=== PATIENT | female | born 1990 | race Caucasian/White ===

== ENCOUNTER 2016-11-26 11:25 | Observation (INO) | payer MEDICAID, OTHER ==
[~2016-11-26] VITALS: Ht 172.7 cm; Wt 76.0 kg
[~2016-11-26 11:25] MED LIST: AUGM875T PO; PRENCAP6 PO; SERO100T PO; SERT100 PO; TRAZ50TA4 PO
[2016-11-26 11:27] VITALS: BP 117/72; PULSE 102; RESP 20; TEMP 98.1; O2SAT 100
[2016-11-26] MEDS ORDERED: NEOSTIGMINE 3 MG/3 ML SYR IV ONE (12:00)
[2016-11-26] MEDS ORDERED: PROPOFOL 200 MG/20 ML AMP IV ONE (12:00)
[2016-11-26] MEDS ORDERED: ONDANSETRON HCL 4 MG/2 ML VIAL IV PUSH ONE (12:00)
[2016-11-26] MEDS ORDERED: PHENYLEPH/NS 1000 MCG/10 ML SYR IV ONE (12:00)
[2016-11-26] MEDS ORDERED: LACTATED RINGER'S 1000 ML INJ 1,000 ML IV ONE (12:00)
[2016-11-26] MEDS ORDERED: ePHEDrine/NS 25 MG/5 ML SYR IV ONE (12:00)
[2016-11-26] MEDS ORDERED: SODIUM CHLOR 0.9% 1000 ML INJ 1,000 ML IV SCH (12:53)
[2016-11-26] MEDS ORDERED: KETOROLAC TROMETHAMINE 30 MG/ML (IVP) VIAL IVP ONE (13:00)
[2016-11-26] MEDS ORDERED: PANTOPRAZOLE SODIUM 40 MG VIAL IVP ONE (13:00)
[2016-11-26] MEDS ORDERED: FAMOTIDINE 20 MG/2 ML VIAL IV PUSH ONE (13:00)
[2016-11-26] MEDS ORDERED: ONDANSETRON HCL 4 MG/2 ML VIAL IVP ONE (13:00)
[2016-11-26] MEDS ORDERED: TRAZ50TA12 PO (13:07)
[2016-11-26] MEDS ORDERED: CYMB60CA PO (13:07)
[2016-11-26] MEDS ORDERED: LAMO100 PO (13:07)
[2016-11-26] MEDS ORDERED: LAMO150 PO (13:07)
[2016-11-26 13:17] LABS: AUTOMATED NEUTROPHIL # 5.8 TH/MM3 (1.8-7.7); BASOPHIL # 0.1 TH/MM3 (0-0.2); BASOPHIL % 0.5 % (0.0-2.0); EOSINOPHIL # 0.3 TH/MM3 (0-0.4); EOSINOPHIL % 3.3 % (0.0-4.0); HEMATOCRIT 37.2 % (35.0-46.0); HEMO FLAGS DIFF FINAL; LYMPHOCYTE # 3.3 TH/MM3 (1.0-4.8); MEAN CELL VOLUME 88.1 FL (80.0-100.0); MEAN CORPUSCULAR HEMOGLOBIN 30.6 PG (27.0-34.0); MEAN CORPUSCULAR HGB CONC 34.8 % (32.0-36.0); MONO % 7.3 % (0.0-8.0); NEUT % 56.9 % (16.0-70.0); PLATELET COUNT 262 TH/MM3 (150-450); RED BLOOD COUNT 4.22 MIL/MM3 (4.00-5.30); RED CELL DISTRIBUTION WIDTH 12.5 % (11.6-17.2); WHITE BLOOD COUNT 10.2 TH/MM3 (4.0-11.0)
[2016-11-26 13:35] LABS: BACTERIA, URINE RARE /hpf; BLOOD, URINE NEG (NEG); COMMENT (UR) CULT NOT INDICATED; CULTURE IF INDICATED CULT NOT INDICATED; GLUCOSE,URINE NEG (NEG); KETONE, URINE NEG (NEG); MUCUS URINE FEW /lpf (OCC); NITRITE,URINE NEG (NEG); SQUAMOUS EPITHELIAL CELL URINE <1 /hpf (0-5); URINE COLOR YELLOW (YELLW/STRAW)
[2016-11-26 13:43] LABS: ANION GAP 5 MEQ/L (5-15); AST (GOT) 71 U/L (15-37); BICARBONATE 24.7 MEQ/L (21.0-32.0); BLOOD UREA NITROGEN 8 MG/DL (7-18); CHLORIDE 109 MEQ/L (98-107); GLOMERULAR FILTRATION RATE 125 ML/MIN (>89); POTASSIUM 3.5 MEQ/L (3.5-5.1); SODIUM (NA) 139 MEQ/L (136-145)
[2016-11-26 13:48] LABS: ALKALINE PHOSPHATASE 128 U/L (45-117); ALT (GPT) 106 U/L (10-53); TOTAL BILIRUBIN ADULT 0.5 MG/DL (0.2-1.0)
--- NOTE | 2016-11-26 13:58 | RADRPT ---
EXAM DATE/TIME: 11/26/2016 13:19 [place] COMPARISON: No previous studies available for comparison. INDICATIONS : Right upper quadrant pain. MEDICAL HISTORY : Seizures. Head trauma. SURGICAL HISTORY : None. ENCOUNTER: Initial ACUITY: 1 day PAIN SCORE: 9/10 LOCATION: Right upper quadrant MEASUREMENTS: LIVER: 14.2 cm length COMMON DUCT: 2 mm RIGHT KIDNEY: 12.2 x 4.6 x 4.2 cm FINDINGS: LIVER: Normal echotexture without focal lesion or ductal dilatation. Main portal vein is patent. COMMON DUCT: No intraluminal mass or stone visualized. GALLBLADDER: There are multiple gallstones in the gallbladder neck and fundus with the largest measuring as above. There is no significant gallbladder wall thickening, pericholecystic fluid,or sonographic Gutierrez sign. Gallbladder is mildly distended. PANCREAS: The visualized portions are within normal limits. RIGHT KIDNEY: No evidence of hydronephrosis, stone, or mass. CONCLUSION: 1. Cholelithiasis without sonographic evidence for acute cholecystitis. Victor Hugo Nobles MD on November 26, 2016 at 13:54 Board Certified Radiologist. This report was verified electronically.
--- NOTE | 2016-11-26 14:05 | PD ---
HPI Chief Complaint: Abdominal Pain Time Seen by Provider: 14:01 Travel History International Travel<30 days: No Contact w/Intl Traveler<30days: No Traveled to known affect area: No History of Present Illness HPI 26-year-old female that presents to the ED for evaluation of right upper quadrant abdominal pain. The patient is a history of gallbladder stones and she 's had this on and off for years. Patient states the last time she had this was about 6 weeks ago. The patient had Gallbladder disease at the time that she was deemed not a surgical candidate at that time for some reason. Patient follows with Dr. Bridges who has actually seen the patient and wanted the patient to come here. She's been trying to get the patient to a general surgeon to get the gallbladder removed secondary to her complaints. She has been unsuccessful secondary to her insurance. Dr. Bridges herself came here and talk to me as well as evaluated the patient and recommends admission to herself with general surgery consult. She will speak with general surgeon herself. Patient states that she has right upper quadrant pain that is 8 out of 10. 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 She states that she has had no diarrhea. No nausea or vomiting. Per patient the pain is 8 out of 10 and mainly stays in the right upper quadrant. She feels weak and tired. PFSH Past Medical History Cancer: No Diabetes: No Diminished Hearing: No Implanted Vascular Access Dvce: No Psychiatric: No Seizures: Yes Thyroid Disease: No Ulcer: No ?: Not Past Surgical History AICD: No Pacemaker: No Other Surgery: No Social History Alcohol Use: No Tobacco Use: Yes Substance Use: No (former) Allergies-Medications (Allergen,Severity, Reaction): Coded Allergies: Rubella Virus Vaccine (Unverified Allergy, Severe, Anaphylaxis, 11/26/16) Reported Meds & Prescriptions Reported Meds & Active Scripts Active Reported Cymbalta DR (Duloxetine HCl) 60 Mg Capdr 60 Mg PO DAILY Lamictal (Lamotrigine) 100 Mg Tab 100 Mg PO DAILY Trazodone (Trazodone HCl) 50 Mg Tab 50 Mg PO HS Review of Systems Except as stated in HPI: all other systems reviewed are Neg Physical Exam Narrative GENERAL: SKIN: Warm and dry. HEAD: Atraumatic. Normocephalic. EYES: Pupils equal and round. No scleral icterus. No injection or drainage. ENT: No nasal bleeding or discharge. Mucous membranes pink and moist. Tongue is midline. No uvula deviation. NECK: Trachea midline. No JVD. CARDIOVASCULAR: Regular rate and rhythm. No murmurs, S3, S4. RESPIRATORY: No accessory muscle use. Clear to auscultation. Breath sounds equal bilaterally. GASTROINTESTINAL: Abdomen soft, patient has reproducible right upper quadrant pain with touch., nondistended. Hepatic and splenic margins not palpable. MUSCULOSKELETAL: Extremities without clubbing, cyanosis, or edema. No obvious deformities. Full range of motion of the upper and lower extremities bilaterally. 2+ pulses bilaterally. NEUROLOGICAL: Awake and alert. No obvious cranial nerve deficits. Motor grossly within normal limits. Five out of 5 muscle strength in the arms and legs. Normal speech. PSYCHIATRIC: Appropriate mood and affect; insight and judgment normal. Data Data Last Documented VS Vital Signs Date Time Temp Pulse Resp B/P Pulse Ox O2 Delivery O2 Flow Rate FiO2 11/26/16 11:27 98.1 102 20 117/72 100 Room Air Orders Urinalysis - C+S If Indicated (11/26/16 11:48) Ed Urine Pregnancytest Poc (11/26/16 11:48) Complete Blood Count With Diff (11/26/16 12:53) Comprehensive Metabolic Panel (11/26/16 12:53) Lipase (11/26/16 12:53) Lactic Acid (11/26/16 12:53) Us Abdomen Gallbladder (11/26/16 ) Iv Access Insert/Monitor (11/26/16 12:53) Ondansetron Inj (Zofran Inj) (11/26/16 13:00) Pantoprazole Inj (Protonix Inj) (11/26/16 13:00) Sodium Chlor 0.9% 1000 Ml Inj (Ns 1000 M (11/26/16 12:53) Famotidine Inj (Pepcid Inj) (11/26/16 13:00) Ketorolac Inj (Toradol Inj) (11/26/16 13:00) Admit Order (Ed Use Only) (11/26/16 13:15) Labs Laboratory Tests Test 11/26/16 12:55 White Blood Count 10.2 TH/MM3 Red Blood Count 4.22 MIL/MM3 Hemoglobin 12.9 GM/DL Hematocrit 37.2 % Mean Corpuscular Volume 88.1 FL Mean Corpuscular Hemoglobin 30.6 PG Mean Corpuscular Hemoglobin 34.8 % Concent Red Cell Distribution Width 12.5 % Platelet Count 262 TH/MM3 Mean Platelet Volume 7.4 FL Neutrophils (%) (Auto) 56.9 % Lymphocytes (%) (Auto) 32.0 % Monocytes (%) (Auto) 7.3 % Eosinophils (%) (Auto) 3.3 % Basophils (%) (Auto) 0.5 % Neutrophils # (Auto) 5.8 TH/MM3 Lymphocytes # (Auto) 3.3 TH/MM3 Monocytes # (Auto) 0.7 TH/MM3 Eosinophils # (Auto) 0.3 TH/MM3 Basophils # (Auto) 0.1 TH/MM3 CBC Comment DIFF FINAL Differential Comment Sodium Level 139 MEQ/L Potassium Level 3.5 MEQ/L Chloride Level 109 MEQ/L Carbon Dioxide Level 24.7 MEQ/L Anion Gap 5 MEQ/L Blood Urea Nitrogen 8 MG/DL Creatinine 0.58 MG/DL Estimat Glomerular Filtration 125 ML/MIN Rate Random Glucose 82 MG/DL Lactic Acid Level 0.8 mmol/L Calcium Level 9.1 MG/DL Total Bilirubin 0.5 MG/DL Aspartate Amino Transf 71 U/L (AST/SGOT) Alanine Aminotransferase 106 U/L (ALT/SGPT) Alkaline Phosphatase 128 U/L Total Protein 7.6 GM/DL Albumin 4.2 GM/DL Lipase 96 U/L [facility] Medical Decision Making Medical Screen Exam Complete: Yes Emergency Medical Condition: Yes Medical Record Reviewed: Yes Interpretation(s) LFts elevated Lipase WNL CBC & BMP Diagram 11/26/16 12:55 US positive for multiple gallbladder stones Differential Diagnosis Gallbladder disease versus cholelithiasis versus symptomatic cholelithiasis versus cholecystitis Narrative Course 26-year-old female that presents to the ED for evaluation of right upper quadrant pain. Patient was properly examined by me and Dr. Cordova who actually came and evaluated the patient. She wants the patient admitted to herself and consult to general surgery. Labs were drawn. Patient does have elevated LFTs with cholelithiasis. Patient was admitted to Dr. Bridges. She was given nonnarcotic medication for pain. Dr. Bridges wants to speak with the general surgeon herself. Patient agrees and understands this plan. Diagnosis Primary Impression: Cholelithiases Qualified Code: K80.20 - Calculus of gallbladder without cholecystitis without obstruction Admitting Information Admitting Physician Requests: Observation Nik Doherty Nov 26, 2016 14:04
[2016-11-26 16:40] VITALS: BP 136/72; PULSE 68; RESP 20
[2016-11-26 17:43] VITALS: BP 98/55; PULSE 81; RESP 14; TEMP 98.2; O2SAT 98
[2016-11-26] MEDS ORDERED: SODIUM CHLORIDE 0.9% FLUSH 10 ML FLUSH IV FLUSH PRN (17:45)
[2016-11-26] MEDS ORDERED: METOCLOPRAMIDE HCL 10 MG/2 ML VIAL IV PUSH PRN (17:45)
[2016-11-26] MEDS ORDERED: NALOXONE HCL 0.4 MG/ML AMP IV PRN (17:45)
--- NOTE | 2016-11-26 17:58 | HHI.HP ---
HPI Chief Complaint Known chronic and now acute cholecystitis with nausea, anorexia, bloating and RUQT and back pain. Date Seen: Nov 26, 2016 Travel History International Travel<30 Days: No Contact w/Intl Traveler<30Days: No Known Affected Area: No History of Present Illness HPI 26 yo swf P2 well known to me from her and opioid addiction treatment. She is a [employer] graduate and remains abstinence based in recovery, working, caring for older child (placed second for adoption) and maintaining sobriety. She has been dealing with increasing RUQT, initially after meals and now constant. She has severe constipation. She cannot eat anything without immediate pain. 12/18. She is bloated and fatigued. She has been to her local hospital several times and told that imaging and labs consistent with acute cholecystitis and that she needs surgery, but has been unable to schedule on an out patient basis She called today in extreme distress (I am essentially her PCP, providing her psychiatric medications and recovery oversight). no fever or chills but exquisitely painful. Sent to ED History Past Medical History Narrative Medical she is positive for hep C genotype 3a It is our intention to begin Epclusa in the near future Medical History: Denies Significant Hx Obstetric History Obstetric History two SVDS at term Past Surgical History Surgical History: No Previous Surgery Family History Family History: Negative Social History Narrative Social History in recovery from opioids IV and other sustancex. No ETOh, cigarettes, or illicit substances. Allergies-Medications (Allergen,Severity, Reaction): Coded Allergies: Rubella Virus Vaccine (Unverified Allergy, Severe, Anaphylaxis, 11/26/16) Home Meds Reported Medications Duloxetine (Cymbalta )60 Mg Capdr60 Mg PO DAILY #30 CAP Ref 0 11/26/16 Lamotrigine (Lamictal)100 Mg Tip570 Mg PO DAILY #30 TAB Ref 0 11/26/16 Trazodone 50 Mg Tab50 Mg PO HS #30 TAB Ref 0 11/26/16 Review of Systems General / Constitutional: Chills Gastrointestinal: Nausea, Vomiting, Abdominal Pain, Constipation, Indigestion Neurologic: Weakness Psychiatric: Anxiety, Depression, Substance Abuse Physical Exam Vital Signs Date Time Temp Pulse Resp B/P Pulse Ox O2 Delivery O2 Flow Rate FiO2 11/26/16 17:43 98.2 81 14 98/55 98 11/26/16 16:40 68 20 136/72 11/26/16 11:27 98.1 102 20 117/72 100 Room Air Narrative GENERAL: Well-nourished, well-developed patient. SKIN: Warm and dry. HEAD: Normocephalic and atraumatic. EYES: No scleral icterus. No injection or drainage. ENT: No nasal drainage noted. Mucous membranes pink. Airway patent. NECK: Supple, trachea midline. No JVD. CARDIOVASCULAR: Regular rate and rhythm without murmurs, gallops, or rubs. RESPIRATORY: Breath sounds equal bilaterally. No accessory muscle use. BREASTS: Bilateral exam showed no masses , no retractions, no nipple discharge. ABDOMEN/GI: Abdomen soft, non-tender, bowel sounds present, no rebound, no guarding RUQT and RCVAT GENITOURINARY: External Genitalia: intact and normal in appearance EXTREMITIES: No cyanosis or edema. no new tracts or phleblitis BACK: Nontender without obvious deformity. No CVA tenderness. NEUROLOGICAL: Awake and alert. Motor and sensory grossly within normal limits. Five out of 5 muscle strength in all muscle groups. Normal speech. Data Data Orders Urinalysis - C+S If Indicated (11/26/16 11:48) Ed Urine Pregnancytest Poc (11/26/16 11:48) Complete Blood Count With Diff (11/26/16 12:53) Comprehensive Metabolic Panel (11/26/16 12:53) Lipase (11/26/16 12:53) Lactic Acid (11/26/16 12:53) Us Abdomen Gallbladder (11/26/16 ) Iv Access Insert/Monitor (11/26/16 12:53) Ondansetron Inj (Zofran Inj) (11/26/16 13:00) Pantoprazole Inj (Protonix Inj) (11/26/16 13:00) Sodium Chlor 0.9% 1000 Ml Inj (Ns 1000 M (11/26/16 12:53) Famotidine Inj (Pepcid Inj) (11/26/16 13:00) Ketorolac Inj (Toradol Inj) (11/26/16 13:00) Admit Order (Ed Use Only) (11/26/16 13:15) Place In Observation (11/26/16 ) Code Status (11/26/16 17:41) Vital Signs (Adult) Q4H (11/26/16 17:41) Activity Oob Ad Estefani (11/26/16 17:41) Diet Npo (11/26/16 Dinner) Sodium Chloride 0.9% Flush (Ns Flush) (11/26/16 17:45) Sodium Chloride 0.9% Flush (Ns Flush) (11/26/16 21:00) Metoclopramide Inj (Reglan Inj) (11/26/16 17:45) Case Management Consult (11/26/16 17:41) Scd Bilateral/Knee High ANGELES.BID (11/26/16 17:41) Naloxone Inj (Narcan Inj) (11/26/16 17:45) Lamotrigine (Lamictal) (11/27/16 09:00) Trazodone (Desyrel) (11/26/16 21:00) Consult Zainab Nfs (11/26/16 ) Labs Laboratory Tests Test 11/26/16 11/26/16 12:55 13:10 White Blood Count 10.2 Red Blood Count 4.22 Hemoglobin 12.9 Hematocrit 37.2 Mean Corpuscular Volume 88.1 Mean Corpuscular Hemoglobin 30.6 Mean Corpuscular Hemoglobin 34.8 Concent Red Cell Distribution Width 12.5 Platelet Count 262 Mean Platelet Volume 7.4 Neutrophils (%) (Auto) 56.9 Lymphocytes (%) (Auto) 32.0 Monocytes (%) (Auto) 7.3 Eosinophils (%) (Auto) 3.3 Basophils (%) (Auto) 0.5 Neutrophils # (Auto) 5.8 Lymphocytes # (Auto) 3.3 Monocytes # (Auto) 0.7 Eosinophils # (Auto) 0.3 Basophils # (Auto) 0.1 CBC Comment DIFF FINAL Differential Comment Sodium Level 139 Potassium Level 3.5 Chloride Level 109 Carbon Dioxide Level 24.7 Anion Gap 5 Blood Urea Nitrogen 8 Creatinine 0.58 Estimat Glomerular Filtration 125 Rate Random Glucose 82 Lactic Acid Level 0.8 Calcium Level 9.1 Total Bilirubin 0.5 Aspartate Amino Transf 71 (AST/SGOT) Alanine Aminotransferase 106 (ALT/SGPT) Alkaline Phosphatase 128 Total Protein 7.6 Albumin 4.2 Lipase 96 Urine Color YELLOW Urine Turbidity CLEAR Urine pH 7.0 Urine Specific [place] 1.009 Urine Protein NEG Urine Glucose (UA) NEG Urine Ketones NEG Urine Occult Blood NEG Urine Nitrite NEG Urine Bilirubin NEG Urine Urobilinogen LESS THAN 2.0 Urine Leukocyte Esterase NEG Urine RBC LESS THAN 1 Urine WBC LESS THAN 1 Urine Squamous Epithelial <1 Cells Urine Bacteria RARE Urine Mucus FEW Microscopic Urinalysis Comment CULT NOT INDICATED Assessment/Plan Assessment and Plan acute cholecystitis with normal WBC but elevated LFTS beyond what is expected with her hep c. In ability to obtain care for her gall bladder disease earlier and it has progressed opioid addiction in remission I am fine with fentanyl jose operatively but would prefer no opioids otherwise and nothing on discharge. Thank you to Dr. Dawson for agreeing to see her. Veronica Bridges MD Nov 26, 2016 17:58
[2016-11-26 19:39] VITALS: BP 109/53; PULSE 95; RESP 17; TEMP 98.1; O2SAT 98
[2016-11-26] MEDS: DULoxetine HCl DR 60 MG CAP PO SCH (20:29)
[2016-11-26] MEDS: lamoTRIgine 100 MG TAB PO SCH (20:29)
[2016-11-26] MEDS: SODIUM CHLORIDE 0.9% FLUSH 10 ML FLUSH IV FLUSH SCH (21:00)
[2016-11-26] MEDS ORDERED: traZODone HCL 100 MG TAB PO SCH (21:00)
[2016-11-26] MEDS ORDERED: ceFAZolin INJ 1,000 MG VIAL IV ONE (22:06)
[2016-11-26] MEDS ORDERED: BUPIVACAINE/EPINEPHRINE 0.5% 50 ML VIAL INFIL ONE (22:14)
--- NOTE | 2016-11-26 22:39 | HHI.PR ---
Immediate Post Op Note Procedure Date: Nov 26, 2016 Pre Op Diagnosis: symptomatic cholelithiasis Post Op Diagnosis: same Surgeon: Chirag Dawson MD Cerner Analyst(s): see or sheet Procedure: lap jes Findings: distended gallbladder with stones Complications: none Specimen(s) removed: gallbladder Estimated blood loss: 5cc Anesthesia: General Drains: None IVF (1000) Patient to: PACU Patient Condition: Good Chirag Dawson MD Nov 26, 2016 22:39
[2016-11-26] MEDS ORDERED: ACETAMINOPHEN 1000 MG/100 ML VIAL IV SCH (23:00)
[2016-11-26] MEDS ORDERED: DO NOT ADM ANY ANTICOAGULANT DRUGS PRN (23:00)
[2016-11-26] MEDS ORDERED: fentaNYL CITRATE 250 MCG/5 ML AMP ONE (23:04)
[2016-11-26] MEDS ORDERED: ACETAMINOPHEN 1000 MG/100 ML VIAL IV ONE (23:21)
[2016-11-26] MEDS ORDERED: KETOROLAC TROMETHAMINE 30 MG/ML (IVP) VIAL ONE (23:39)
[2016-11-26] MEDS: SODIUM CHLOR 0.9% 1000 ML INJ 1,000 ML IV SCH (23:45)
[2016-11-27] MEDS ORDERED: ACETAMINOPHEN 1000 MG/100 ML VIAL IV PRN
[2016-11-27 00:18] VITALS: BP 92/52; PULSE 76; RESP 16; TEMP 96.2; O2SAT 95
[2016-11-27 04:00] VITALS: BP 100/56; PULSE 94; RESP 16; TEMP 96.3; O2SAT 96
[2016-11-27] MEDS: KETOROLAC TROMETHAMINE 30 MG/ML (IVP) VIAL IV PUSH PRN ×2 (04:25→12:00)
[2016-11-27] MEDS: SODIUM CHLOR 0.9% 1000 ML INJ 1,000 ML IV SCH (07:45)
[2016-11-27 08:00] VITALS: BP 92/50; PULSE 73; RESP 14; TEMP 98
--- NOTE | 2016-11-27 08:36 | HHI.PR ---
Subjective Remarks Doing well, pain is well controlled with toradol only and does not want narcotics very happy with how much better she feels. "starving" Objective Vital Signs Vital Signs Date Time Temp Pulse Resp B/P Pulse Ox O2 Delivery O2 Flow Rate FiO2 11/27/16 05:25 16 11/27/16 04:00 96.3 94 16 100/56 96 11/27/16 00:18 96.2 76 16 92/52 95 11/26/16 23:45 98.1 83 21 100/55 95 Room Air 11/26/16 23:30 84 22 95/53 97 Nasal Cannula 2 11/26/16 23:15 82 22 103/59 99 Nasal Cannula 2 11/26/16 23:00 98.5 97 20 109/60 94 Nasal Cannula 3 11/26/16 21:37 83 16 100/57 96 11/26/16 21:10 98.1 85 16 103/58 98 11/26/16 19:39 98.1 95 17 109/53 98 11/26/16 17:43 98.2 81 14 98/55 98 11/26/16 16:40 68 20 136/72 11/26/16 11:27 98.1 102 20 117/72 100 Room Air I/O 11/26/16 11/26/16 11/26/16 11/27/16 11/27/16 11/27/16 06:59 14:59 22:59 06:59 14:59 22:59 Intake Total 30 ml 1130 ml Output Total 10 ml Balance 30 ml 1120 ml Intake Oral 30 ml 30 ml IV Total 100 ml Other 1000 ml Output Urine Total 0 ml Estimated Blood Loss 10 ml Other 0 ml Result Diagram: 11/26/16 1255 11/26/16 1255 Objective Remarks Chest is clear, regular rate and rhythm. Abdomen is soft and non-distended. Incisions clean and dry. Ext no CCE. A/P Assessment and Plan Post Op Day 1 s/p lap choly with Dr. Elizabeth Doing well and very grateful advancing diet slowly due to lack of bowel sounds Home today and return to office in two weeks. Veronica Bridges MD Nov 27, 2016 08:36
[2016-11-27] MEDS ORDERED: lamoTRIgine 100 MG TAB PO SCH (09:00)
[2016-11-27] MEDS ORDERED: DULoxetine HCl DR 60 MG CAP PO SCH (09:00)
[2016-11-27] MEDS: DULoxetine HCl DR 60 MG CAP PO SCH (09:07)
[2016-11-27] MEDS: lamoTRIgine 100 MG TAB PO SCH (09:07)
[2016-11-27] MEDS: SODIUM CHLORIDE 0.9% FLUSH 10 ML FLUSH IV FLUSH SCH (09:08)
[2016-11-27 12:00] VITALS: BP 114/59; PULSE 70; RESP 16; TEMP 98.1
--- NOTE | 2016-11-27 12:05 | HHI.DCPOC ---
Discharge Care Plan Report Symptoms to Your Doctor -Temperature above 100.5 degrees -Redness, of incision or excessive or foul smelling drainage -Unusual pain or calf pain -Increased vaginal bleeding -Painful or difficulty urinating -Feelings of extreme sadness or anxiety after 2 weeks Goals to Promote Your Health * To prevent worsening of your condition and complications * To maintain your health at the optimal level Directions to Meet Your Goals Take your medications as prescribed Follow your dietary instruction Follow activity as directed Ensure plenty of rest for recovery Drink fluids for hydration Keep your appointments as scheduled Take your immunizations and boosters as scheduled If your symptoms worsen call your PCP, if no PCP go to Urgent Care Center or Emergency Room Smoking is Dangerous to Your Health. Avoid second hand smoke Call the 24-hour crisis hotline for domestic abuse at Veronica Bridges MD Nov 27, 2016 12:05
--- NOTE | 2016-11-27 17:13 | HHI.PR ---
Subjective Subjective Notes Resting in bed Hungry Objective Vitals/I&O Vital Signs Date Time Temp Pulse Resp B/P Pulse Ox O2 Delivery O2 Flow Rate FiO2 11/27/16 12:00 98.1 70 16 114/59 11/27/16 04:00 96 11/26/16 23:45 Room Air 11/26/16 23:30 2 Cardiovascular: Regular Lungs: Clear Abdomen: Other (lap sites c/d/i; abd soft; minimally tender ) Extremities: No edema A/P Assessment and Plan 26 year old female POD1 lap jes -Tolerating diet -Pain control with non narcotic pain per patient request -Discussed post op care -Follow up with in 10-14 days - clear for DC Attending Statement as above pt seen at bedside ok to d/c home doing well Attestation The exam, history, and the medical decision-making described in the above note were completed with the assistance of the mid-level provider. I reviewed and agree with the findings presented. I attest that I had a [id number] encounter with the patient on the same day, and personally performed and documented my assessment and findings in the medical record. Damari Alexander Nov 27, 2016 17:13 Chirag Dawson MD Dec 02, 2016 11:12
--- NOTE | 2016-11-27 21:22 | MB ---
cc: REGGIE SHEPHERD MD DATE OF CONSULTATION 11/26/2016 CHIEF COMPLAINT Right upper quadrant abdominal pain. HISTORY OF PRESENT ILLNESS The patient is a 26-year-old female with history of IVDA, presents with acute onset of right upper quadrant abdominal pain. She states the pain has been going on for the past couple of days, gotten severely worse and she could not eat anything without having significant pain following. Pain is an 8/10; is currently an 7/10, some improvement with pain medication. She has been seen several times to evaluate for acute cholecystitis and cholelithiasis. However, has not been able to get her gallbladder out. She presents today with similar complaints and is inquiring about possible operative intervention. She denies any fever, chills but does have significant right upper quadrant pain. She denies any change in bowel habits. PAST MEDICAL HISTORY Hepatitis C. PAST SURGICAL HISTORY The patient has had no surgeries. FAMILY HISTORY The patient has no diabetes or hypertension. SOCIAL HISTORY Recovered from opiate IV addiction, currently doing well, currently abstinent. Denies EtOH, smoking or IVDA currently. MEDICATIONS See EMR. ALLERGIES The patient has no known drug allergies. ALLERGY TO RUBELLA VIRUS. REVIEW OF SYSTEMS GENERAL: Denies fevers. Complained of chills. HEENT: Denies eye pain, ear pain. NECK: Denies swelling or pain. LUNGS: Denies cough or wheeze. HEART: Denies chest pain or palpitations. ABDOMEN: Complains of nausea, vomiting, abdominal pain. NEUROLOGIC: Denies numbness or tingling. PSYCH: Complains of anxiety, depression. Denies current substance use. : Denies dysuria, hematuria. ENDOCRINE: Denies polyuria, polydipsia. INTEGUMENT: Denies any obvious masses or lesions. PHYSICAL EXAMINATION GENERAL: The patient no acute distress. VITAL SIGNS: Temperature 98.2, pulse 81, respirations 14, blood pressure 98/55, pulse ox 98% on room air. HEENT: PERRLA, pupils equal, round, reactive. No scleral icterus. NECK: Supple. Trachea midline. LUNGS: Bilateral expansion. Clear respirations. HEART: S1-S2. Regular rhythm. ABDOMEN: Soft, positive tenderness to palpation right upper quadrant, localized rebound. No guarding, soft, otherwise. EXTREMITIES: Warm, well-perfused, moving all extremities. NEUROLOGIC: 5/5 motor all extremities. II-XII cranial nerves intact. PSYCH: Good insight, good judgment. LABORATORY AND DIAGNOSTIC DATA WBC 10.2, hemoglobin 12.9, hematocrit 37.2, platelets 262, sodium 139, potassium 3.5, chloride 109, BUN 8, creatinine 0.5, lactate 0.8, AST 71, ALT 106, alkaline phos was 128, lipase 96. IMAGING STUDIES Ultrasound reviewed by myself showing cholelithiasis, distended gallbladder. No pericholecystic fluid. ASSESSMENT The patient is a 26-year-old female presents with right upper quadrant pain, history of cholelithiasis who currently presents with acute onset of symptomatic cholelithiasis. PLAN After full clinical, radiologic, laboratory workup the patient with above-named issues including cholelithiasis, symptomatic, severe right upper quadrant abdominal pain. PLAN We will take the patient to operative room for laparoscopic cholecystectomy. This is discussed with the patient in detail. She states she understands the procedure and would like to proceed with operative intervention. Will make the patient n.p.o., IV pain control, IV fluids. We will limit narcotics as the patient does have a history of narcotic abuse. MD MONROE Xavier/ELVIA /4:55 PM /9:11 PM
--- NOTE | 2016-11-29 09:40 | MP ---
cc: REGGIE DAWSON MD DATE OF SURGERY: 11/26/2016 PREOPERATIVE DIAGNOSIS: Symptomatic cholelithiasis. POSTOPERATIVE DIAGNOSIS Symptomatic cholelithiasis. PROCEDURE PERFORMED Laparoscopic cholecystectomy SURGEON Dr. Reggie Dawson STUDENT DEVELOPMENT ADVISOR: see OR sheet ANESTHESIA GETA IV FLUIDS: IV fluids. See anesthesia sheet. ESTIMATED BLOOD LOSS: 5 cc. DRAINS: None. COMPLICATIONS: None. CLASSIFICATION: Classification clean contaminated. SPECIMENS: Specimens were gallbladder. INDICATIONS FOR PROCEDURE: The patient is 26-year-old female who presents with acute onset right upper quadrant abdominal pain. She has had this pain for several years now and it continued to get worse. She has had some workups with ultrasound CT scan showing stones in gallbladder. DISCUSSION: A discussion was done with the patient regarding symptomatology and decision for operative removal of gallbladder, agreed and he would like to proceed. DETAILS OF PROCEDURE: The patient was taken to operating suite, placed in supine position. She was prepped and draped in usual sterile fashion after induction of general endotracheal anesthesia. Brief time-out done stating correct patient, procedure, surgical site, we were all in agreement. We proceeded to resected to the umbilicus where stab carlos was then with 11-blade. Prior to this local anesthetic injected. Veress needle placed and abdominal placement, confirmed with saline drop test. Abdomen insufflated to 50 mm pneumoperitoneum. The Veress needle exchanged for a 5-mm scope and Visiport. On cursory inspection no evidence of injury. Three other ports placed, one 12 mm epigastric followed by two 5 mm right subcostal ports. The patient placed in reverse Trendelenburg and air planed to the left. The gallbladder was identified. Minimal adhesions taken down to the gallbladder, the gallbladders fundus grasped and retracted it cephalad. The cystic duct and cystic artery identified and structures on the gallbladder and dissect out with a hook electro Bovie cautery. Two clips placed proximally and one distally to both the cystic duct and cystic artery and this was used to transect the cystic duct and cystic artery. The gallbladder was then removed from the gallbladder fossa in normal fashion using hook electrocautery. The gallbladder was then placed in the EndoCatch bag and removed. Hemostasis was obtained with electro Bovie cautery hook. The patient was then flattened out, the pneumoperitoneum was removed and the trocars removed. The epigastric port was closed with 0 Vicryl [id number] fashion. The other ports were closed with 4-0 Monocryl subcuticular sutures. The patient tolerated procedure well. No intraoperative complication. All lap and instrument counts were correct at the end of the procedure, the patient was extubated and taken christy to PACU. MD MONROE Xavier/david /4:49 PM /9:23 AM MTDGloria
== END 2016-11-27 14:17 | disposition home or self-care (01) ==
LOC: NEPE 11:25 → NEDA 13:16 → UNDOADMIN 13:16 → NEDH 13:16 → INTOOBSV 13:16 → NEDA 13:16 → UNDOADMOB 13:16 → NEPHCDU 17:31 → NEDH 17:31 → NEDA 17:31 → NEPHCDU 20:55 → HOCB 20:55 → NEPHCDU 20:55 → HOCB 20:55 → HOCA 11-27 00:03
PROVIDERS: ADMIT Obstetrics & Gynecology; ATTEND Obstetrics & Gynecology
PROC: 0FT44ZZ Resection of Gallbladder, Percutaneous Endoscopic Approach (ICD-10-PCS; principal; 2016-11-26 21:59)
DX: K80.10 Calculus of gallbladder with chronic cholecystitis without obstruction (principal); B19.20 Unspecified viral hepatitis C without hepatic coma
CPT/HCPCS: 00790; 47562; 76705; 80053; 81001; 83605; 83690; 84703; 85025; 88304; 99285; C9113; G0378; J0131; J0690; J1885; J2370; J2405; J2710; J3010; J7030; J7120